=== PATIENT | female | born 1990 | race Caucasian/White ===

== ENCOUNTER 2020-09-10 09:10 | Emergency (ER) | payer OTHER, SELFPAY ==
--- NOTE | ~2020-09-10 | XR_ITS ---
XR knee LT 3V 09/10/2020 11:04 INDICATION: Left knee pain PROCEDURE: 3 views left knee COMPARISON: No prior studies for comparison. FINDINGS: Fracture, dislocation or subluxation is not identified. The soft tissues appear within norm al limits. No foreign bodies are identified. IMPRESSION: 1: NO ACUTE BONE OR JOINT ABNORMALITY IDENTIFIED. Reviewed, dictated and finalized at location A.
--- NOTE | ~2020-09-10 | XR_ITS ---
XR elbow LT min 3V 09/10/2020 11:04 INDICATION: Left elbow pain after fall PROCEDURE: 4 views left elbow COMPARISON: No prior studies for comparison. FINDINGS: Fracture, dislocation or subluxation is not identified. The soft tissues appear within norm al limits. No foreign bodies are identified. IMPRESSION: 1: NO ACUTE BONE OR JOINT ABNORMALITY IDENTIFIED. Reviewed, dictated and finalized at location A.
[2020-09-10 09:13] VITALS: BP 137/99; PULSE 98; RESP 18; TEMP 36.3; O2SAT 100
--- NOTE | 2020-09-10 11:18 | ED.GENADULT ---
HPI - General Adult General Chief complaint: Fall <David Akers PA-C - Last Filed: 09/10/20 11:23> Stated complaint: elbow/knee pain <David Akers PA-C - Last Filed: 09/10/20 11:23> Time Seen by Provider: 09/10/20 10:14 <David Akers PA-C - Last Filed: 09/10/20 11:23> Source: patient and RN notes reviewed <David Akers PA-C - Last Filed: 09/10/20 11:23> Mode of arrival: ambulatory <David Akers PA-C - Last Filed: 09/10/20 11:23> Limitations: no limitations <David Akers PA-C - Last Filed: 09/10/20 11:23> History of Present Illness HPI narrative: Patient is a 30-year-old female who presents to emergency department for evaluation of injury to the left knee and left elbow that occurred from a fall a week ago described as mechanical in nature notes continued aching pain at these joints worse with weightbearing and activity and prolonged standing denies other injuries or complaints presents in no distress has been taken ibuprofen <David Akers PA-C - Last Filed: 09/10/20 11:23> Related Data Allergies/adverse reactions: Allergies Allergy/AdvReac Type Severity Reaction Status Date / Time erythromycin base Allergy Unknown Unknown Verified 04/08/19 15:52 <David Akers PA-C - Last Filed: 09/10/20 11:23> Review of Systems Review of Systems: All systems reviewed & are unremarkable except as noted in HPI and below <David Akers PA-C - Last Filed: 09/10/20 11:23> REPLACED BY [facility] Past Medical History Medical History: Medical History (Updated 09/10/20 @ 11:22 by David Akers PA-C) Anxiety and depression Asthma <David Akers PA-C - Last Filed: 09/10/20 11:23> Family History Family History: Family History Mother Hypertension Asthma Family history of hypothyroidism <BIANCA Rojas Last Filed: 09/10/20 11:23> Social History Social History: Social History Smoking status: Never smoker Alcohol intake: never Gender identity (if verbalized by the patient): Female <David Akers PA-C - Last Filed: 09/10/20 11:23> Exam Narrative: Exam Narrative: GENERAL: Well-appearing, well-nourished, and in no acute distress. HEAD: Normocephalic, atraumatic. EYES: PERRLA and EOMI. ENT: Nares clear, no rhinorrhea or epistaxis. Mucous membranes moist. CHEST: Clear to auscultation. No respiratory distress. No wheezes rales or rhonchi HEART: Regular rate and rhythm. No murmur heard. Normal peripheral pulses. EXTREMITIES: Normal range of motion. No edema. Tenderness of the left elbow and left knee joint no deformities noted SKIN: Warm, dry, no rash. NEURO: No focal deficits. Alert and oriented x3. Neurovascularly intact. Capillary refill less than 2 seconds PSYCH: Normal mood and affect. <David Akers PA-C - Last Filed: 09/10/20 11:23> Course Course Emergency Course: Patient in the room no distress made aware of her imaging findings will be discharged for outpatient follow-up provided with orthopedic follow-up felt appropriate for outpatient reevaluation <David Akers PA-C - Last Filed: 09/10/20 11:23> Vital Signs Vital signs: Vital Signs Temperature 97.3 F L 09/10/20 09:13 Pulse Rate 98 09/10/20 09:13 Respiratory Rate 18 09/10/20 09:13 Blood Pressure 137/99 H 09/10/20 09:13 Pulse Oximetry 100 09/10/20 09:13 Temperature 97.3 F L 09/10/20 09:13 Pulse Rate 75 09/10/20 11:42 Respiratory Rate 18 09/10/20 11:42 Blood Pressure 117/89 09/10/20 11:42 Pulse Oximetry 100 09/10/20 11:42 <David Akers PA-C - Last Filed: 09/10/20 11:23> Vital Signs Temperature 97.3 F L 09/10/20 09:13 Pulse Rate 98 09/10/20 09:13 Respiratory Rate 18 09/10/20 09:13 Blood Pressure 137/99 H 09/10/20 09:13 Pulse Oximetry 100 09/10/20 09:13
[2020-09-10 11:42] VITALS: BP 117/89; PULSE 75; RESP 18; O2SAT 100
== END 2020-09-10 11:45 | disposition home or self-care (01) ==
PROVIDERS: Emergency Provider General Practice; PCP Family Medicine
DX: S89.92XA Unspecified injury of left lower leg, initial encounter (principal); S59.902A Unspecified injury of left elbow, initial encounter; J45.909 Unspecified asthma, uncomplicated; W19.XXXA Unspecified fall, initial encounter
CPT/HCPCS: 73080; 73562; 99284